=== PATIENT | female | born 2000 | race Two or more races ===

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

== ENCOUNTER 2022-01-09 17:54 | Emergency (ER) | payer MEDICAID ==
[~2022-01-09] VITALS: Ht 152.4 cm; Wt 43.0 kg
[2022-01-09 23:06] VITALS: BP 102/71
[2022-01-10] MEDS ORDERED: IBUP800T27 PO (00:10)
== END 2022-01-10 00:35 | disposition home or self-care (01) ==
LOC: ER 17:54
DX: S93.401A Sprain of unspecified ligament of right ankle, initial encounter (principal); J45.909 Unspecified asthma, uncomplicated; X50.1XXA Overexertion from prolonged static or awkward postures, initial encounter; Y93.89 Activity, other specified; Y92.89 Other specified places as the place of occurrence of the external cause; Y99.8 Other external cause status
CPT/HCPCS: 73610